=== PATIENT | female | born 1995 | race Hispanic/Latino ===

== ENCOUNTER 2016-11-18 13:00 | Emergency (ER) | payer OTHER ==
[2016-11-18 13:13] VITALS: BP 145/89; PULSE 100; RESP 19; TEMP 98.8; O2SAT 100
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
[2016-11-18] MEDS ORDERED: cefTRIAXone (Rocephin) 250 mg Inj IM ONE (15:03)
[2016-11-18] MEDS ORDERED: Sterile Water 10 ML IV ONE (15:24)
[2016-11-18] MEDS ORDERED: cefTRIAXone (Rocephin) 250 mg Inj ONE (15:24)
[2016-11-18 15:36] LABS: ALB/GLOB RATIO 1.6 (1.0-2.1); BILIRUBIN,TOTAL 0.5 mg/dl (0.2-1.3); TOTAL PROTEIN 8.4 G/DL (6.3-8.2)
== END 2016-11-18 16:19 | disposition home or self-care (01) ==
LOC: H.ER 13:00
DX: Z20.2 Contact with and (suspected) exposure to infections with a predominantly sexual mode of transmission (principal)
CPT/HCPCS: 80074; 80076; 81025; 86592; 87390; 87491; 87591; 96372; 99284; J0696